=== PATIENT | female | born 1980 | race Caucasian/White ===

== ENCOUNTER → 2023-12-23 16:51 | Outpatient (REF) | payer OTHER, SELFPAY | LOC: WDC 16:51 | PROVIDERS: ATTENDING PHYSICIAN Obstetrics & Gynecology; FAMILY PHYSICIAN Family Medicine | DX: Z12.31 Encounter for screening mammogram for malignant neoplasm of breast (principal) | CPT/HCPCS: 77063; 77067 ==

== ENCOUNTER → 2024-01-04 10:16 | Outpatient (REF) | payer OTHER, SELFPAY | LOC: WDC 10:16 | PROVIDERS: ATTENDING PHYSICIAN Obstetrics & Gynecology; FAMILY PHYSICIAN Family Medicine | DX: R92.8 Other abnormal and inconclusive findings on diagnostic imaging of breast (principal) | CPT/HCPCS: 76642 ==

== ENCOUNTER 2024-04-21 14:14 | Emergency (ER) | payer OTHER, SELFPAY ==
[2024-04-21 14:25] VITALS: BP 112/69
--- NOTE | 2024-04-21 14:27 | ED.SKININJ ---
HPI-Injury
<Otto Syed PA-C - Last Filed: 04/21/24 14:28>
General
Chief Complaint: Rabies
Time Seen by Provider: 04/21/24 16:05
<Yudy Rios PA-C - Last Filed: 04/21/24 22:48>
General
Source: patient
Exam Limitations: none
Nursing documentation reviewed up to this point in time: agreed with
History of Present Illness-Injury
Is pt an associate of [facility]?: No
Initial Injury comments:
Patient is a 44-year-old female presenting to the emergency department for evaluation after finding multiple bats in the house. Patient states that she found multiple bats in her kids room 3 days ago. This morning�there them were 2 other bats
found in a general living space. Patient denies any known bite. Patient presents for rabies vaccination series. She denies receiving rabies vaccination in the past.
ED Provider Triage
<Otto Syed PA-C - Last Filed: 04/21/24 14:28>
-
Patient seen by provider in Triage?: Seen in Triage
44-year-old female presents for rabies vaccine. There is bat found in the house. Has not been immunized previously.
Rabies vaccine and immunoglobulin ordered
Review of Systems
<Yudy Rios PA-C - Last Filed: 04/21/24 22:48>
Review of Systems
Allergies reviewed?: Yes
All Other Systems: ROS reviewed and negative except as documented in HPI and ROS
Phy Exam
<Yudy Rios PA-C - Last Filed: 04/21/24 22:48>
Physical Exam
Physical Exam:
Vitals: Patient's vital signs are stable. Afebrile
General: Patient is well appearing, no acute distress
Skin: Warm and dry, no rashes or lesions. No evidence of bite pinto.
Head: Normocephalic, atraumatic
Throat: Protecting airway
Neck: Normal ROM, no cervical spine tenderness
Cardiac: Regular rate
Pulm: No apparent respiratory distress
Abdomen: Nondistended
Extremities: No evidence of cyanosis or edema
Neuro: Grossly intact
Psychiatric: Normal affect.
Course
<Otto Syed PA-C - Last Filed: 04/21/24 14:28>
Orders/Labs/Results
Orders:
Orders
04/21/24 15:13
Rabies Immune Globulin/Pf [HyperRAB] 1,292 unit IM NOW STA
04/21/24 15:15
Rabies Vaccine (Pcec)/Pf [Rabavert Rabies Vacc W-Diluent] 2.5 unit IM .ONCE ONE
Vital Signs
Initial and Last Documented VS:
Initial Vital Signs
Temp Pulse Resp BP Pulse Ox
97.6 F 80 16 112/69 98
04/21/24 14:25 04/21/24 14:25 04/21/24 14:25 04/21/24 14:25 04/21/24 14:25
Last Documented Vital Signs
Temp Pulse Resp BP Pulse Ox
97.6 F 80 16 112/69 98
04/21/24 14:25 04/21/24 14:25 04/21/24 14:25 04/21/24 14:25 04/21/24 14:25
<Yudy Rios PA-C - Last Filed: 04/21/24 22:48>
Orders/Labs/Results
Orders:
Orders
04/21/24 15:13
Rabies Immune Globulin/Pf [HyperRAB] 1,292 unit IM NOW STA
04/21/24 15:15
Rabies Vaccine (Pcec)/Pf [Rabavert Rabies Vacc W-Diluent] 2.5 unit IM .ONCE ONE
Vital Signs
Initial and Last Documented VS:
Initial Vital Signs
Temp Pulse Resp BP Pulse Ox
97.6 F 80 16 112/69 98
04/21/24 14:25 04/21/24 14:25 04/21/24 14:25 04/21/24 14:25 04/21/24 14:25
Last Documented Vital Signs
Temp Pulse Resp BP Pulse Ox
97.6 F 80 16 112/69 98
04/21/24 14:25 04/21/24 14:25 04/21/24 14:25 04/21/24 14:25 04/21/24 14:25
<Yudy Rios PA-C - Last Filed: 04/21/24 22:48>
MDM/Problems Addressed
Differential Diagnosis Includes:
Not limited to: Rabies prophylaxis, etc.
MDM/Problems Addressed:
44-year-old female presenting after bat exposure in house. No known bite. No prior rabies vaccination series. Patient is stable vital signs. On exam�patient is well-appearing, no apparent distress. No evidence of bite pinto. Rabies vaccination
series initiated in emergency department today. Patient received immunoglobulin and first dose of rabies vaccine. She will visit infusion center for 3 remaining rabies vaccines on 04/24/24, 04/28/24, and 05/05/24. Return precautions discussed.
All questions answered.
Chronic conditions affecting care:
N/A
Acute Exacerbation and/or Progression of Chronic Illness:
N/A
<Yudy Rios PA-C - Last Filed: 04/21/24 22:48>
*Pulse Oximetry
Patient hypoxic: no
*EKG
Interpreted by ED Provider?: NA
*Senior Case Manager Interpretation
Rate: Senior Case Manager- N/A
*Critical Care Note
Total Time (30-74mins, 75-104mins- exclusive of procedures): Not Applicable
ED Attending Note
<Otto Syed PA-C - Last Filed: 04/21/24 14:28>
-
Portions of this chart may have been created with voice recognition software.� Occasional wrong word or��sound alike� substitutions may have occurred due to the inherent limitations of voice recognition software.
Discharge Plan
Departure
Patient Disposition: Home (Routine Discharge)
Date of Disposition: 04/21/24
Time of Disposition: 16:22
Patient with high blood pressure during this ER visit?: No
Condition: Good
Covid-19: Not Applicable
Discharge Problem:
Rabies, need for prophylactic vaccination against
Instructions: Rabies
Prescriptions:
New
RabAvert (PF) 2.5 unit suspension for reconstitution
2.5 unit IM ONCE Qty: 3 0RF
Rx Instructions:
Administer 1mL on 04/24/24, 04/28/24, and 05/05/24
No Action
vit no.[id number] [ Vitamin] 1 EACH tablet
1 ea PO DAILY
ibuprofen 600 MG tablet
600 mg PO Q6HPRN PRN (Reason: cramps) Qty: 30 0RF
Referrals:
Pamela Henry MD [Family Provider] -
Stand Alone Forms: Rabies Vaccine Post Exp Dosing
Activity Restrictions/Additional Instructions:
RETURN TO THE EMERGENCY DEPARTMENT WITH ANY FEVERS, RASH, REDNESS, SWELLING, OR SIGNS OF VACCINATION SITE REACTION, OR ANY OTHER CONCERNS
-As discussed - you will require 3 additional doses of the rabies vaccine. These should be administered on 04/24/2024, 04/28/2024, and 05/05/2024. You will need to either return to the emergency department or schedule an appoint with the infusion
clinic as described above.
-Follow-up with primary care as needed for further evaluation/management
Monitor symptoms closely and return to the emergency department with any new/worsening symptoms or other concerns
Interventions
Interventions:
*Risk Screen - Suicide Last Done: 04/21/24 14:25
*General Assessment Last Done: 04/21/24 14:25
*Neglect/Abuse Screening Last Done: 04/21/24 15:16
*ED COVID-19 Vaccine History Last Done: 04/21/24 14:25
*Nursing Disposition Last Done: 04/21/24 16:54
Discharge Date and Time
Discharge Date/Time: 04/21/24 16:55
Print Language: [email or web address]
[2024-04-21] MEDS: RABAVERT RABIES VACC W-DILUENT 2.5 UNIT IM (16:04)
[2024-04-21] MEDS: HyperRAB 1292 UNIT IM (16:06)
== END 2024-04-21 16:55 | disposition home or self-care (01) ==
LOC: EMR 14:14
PROVIDERS: EMERGENCY PHYSICIAN Emergency Medicine; FAMILY PHYSICIAN Family Medicine
DX: Z20.3 Contact with and (suspected) exposure to rabies (principal); Z23 Encounter for immunization; Z29.14 Encounter for prophylactic rabies immune globulin
CPT/HCPCS: 99282; 90471; 96372; 90375; 90675

== ENCOUNTER 2024-04-25 13:36 | Outpatient (RCR) | payer OTHER, SELFPAY ==
[2024-04-25 13:45] VITALS: BP 86/68
[2024-04-25] MEDS: RABAVERT RABIES VACC W-DILUENT 2.5 UNIT IM (14:02)
== END 2024-04-26 09:05 | disposition home or self-care (01) ==
LOC: OID 13:36
PROVIDERS: ATTENDING PHYSICIAN Emergency Medicine
DX: Z20.3 Contact with and (suspected) exposure to rabies (principal); Z23 Encounter for immunization
CPT/HCPCS: 90471; 90675

== ENCOUNTER 2024-05-05 14:25 | Outpatient (RCR) | payer BC, SELFPAY ==
[2024-04-28 13:49] VITALS: BP 107/55
[2024-04-28] MEDS: RABAVERT RABIES VACC W-DILUENT 2.5 UNIT IM (13:56)
[2024-05-05] MEDS: RABAVERT RABIES VACC W-DILUENT 2.5 UNIT IM (14:39)
[2024-05-05 14:57] VITALS: BP 104/35
== END 2024-05-27 23:59 | disposition home or self-care (01) ==
LOC: OID 14:25
PROVIDERS: ATTENDING PHYSICIAN Emergency Medicine; FAMILY PHYSICIAN Family Medicine
DX: Z20.3 Contact with and (suspected) exposure to rabies (principal); Z23 Encounter for immunization
CPT/HCPCS: 90471; 90675

== ENCOUNTER → 2025-01-16 08:27 | Outpatient (REF) | payer BC, SELFPAY | LOC: WDC 08:27 | PROVIDERS: ATTENDING PHYSICIAN Family Medicine | DX: Z12.39 Encounter for other screening for malignant neoplasm of breast (principal); Z12.31 Encounter for screening mammogram for malignant neoplasm of breast | CPT/HCPCS: 77063; 77067 ==